=== PATIENT | male | born 1950 ===

== ENCOUNTER 2018-03-02 08:44 | Emergency (ER) | payer OTHER ==
[2018-03-02 08:56] VITALS: RESP 18; TEMP 98.2
[2018-03-02] MEDS ORDERED: Naproxen 550 mg Tab PO STA (09:17)
[2018-03-02] MEDS ORDERED: Naproxen 550 mg Tab PO ONE (09:24)
--- NOTE | 2018-03-02 10:34 | C.PDOC ---
History Of Present Illness 67 year old male presents to the ED for evaluation of right lower back pain and right lower rib pain for 3 days. Patient notes he was heavy lifting. Denies direct trauma, cough, fever, SOB, and any other associated symptoms. Time Seen by Provider: 03/02/18 09:04 Chief Complaint (Nursing): Back Pain History Per: Patient History/Exam Limitations: no limitations Onset/Duration Of Symptoms: Days Current Symptoms Are (Timing): Still Present Past Medical History Reviewed: Historical Data, Nursing Documentation, Vital Signs Vital Signs: Last Vital Signs Temp 98.2 F 03/02/18 08:50 Pulse 67 03/02/18 08:50 Resp 18 03/02/18 08:50 BP 111/68 03/02/18 08:50 Pulse Ox 98 03/02/18 08:50 Family History: States: Unknown Family Hx - Social History Hx Tobacco Use: Yes (light smoker) Hx Alcohol Use: Yes Hx Substance Use: No - Immunization History Hx Tetanus Toxoid Vaccination: No Hx Influenza Vaccination: No Hx Pneumococcal Vaccination: No Review Of Systems Constitutional: Negative for: Fever, Other (direct trauma.) Respiratory: Negative for: Cough, Shortness of Breath Musculoskeletal: Positive for: Back Pain (right lower back pain.), Other (right lower rib pain. ) Physical Exam - Physical Exam Appears: Other (mild pain. ) Skin: Normal Color, Warm, Dry, No Other ((-) abrasions. (-) contusions.) Head: Atraumatic, Normacephalic Cardiovascular: Rhythm Regular, No Murmur Respiratory: Normal Breath Sounds, No Rales, No Rhonchi, No Wheezing Gastrointestinal/Abdominal: Normal Exam, Soft, Other (tenderness to palpation to the right lateral lower ribs. ) Neurological/Psych: Oriented x3, Normal Speech Gait: Steady ED Course And Treatment O2 Sat by Pulse Oximetry: 98 (RA) Pulse Ox Interpretation: Normal - Other Rad X-ray Ribs with Chest X-Ray: Viewed By Me, Read By Radiologist Interpretation: FINDINGS: RIGHT RIBS: There is an acute nondisplaced fracture in the right posterior 9th rib. LUNGS: The lungs are well inflated. There is mild interstitial thickening in the lower lobes. No focal consolidation. PLEURA: No pneumothorax or pleural fluid. CARDIOVASCULAR: Normal sized heart. No pulmonary vascular congestion. OTHER FINDINGS: None. IMPRESSION: Acute nondisplaced fracture in the right posterior 9th rib. No pleural effusion or pneumothorax. X-ray LS X-Ray: Viewed By Me, Read By Radiologist Interpretation: FINDINGS: BONES: There is degenerative grade 1 anterior listhesis of L5 on S1 there is degenerative 9 mm anterior listhesis of L4 on L5. There is 6 mm retrolisthesis of L3 on L4. There is diffuse bone demineralization. There is an age indeterminate mild superior endplate compression deformity in the L2 vertebral body. DISC SPACES: Advanced multilevel degenerative disc disease with anterior osteophytes, reduced disc heights and multilevel facet arthropathy, worse at L4-5 and L5-S1. OTHER FINDINGS: None. IMPRESSION: Age indeterminate mild superior endplate compression deformity in the L2 vertebral body. Advanced multilevel degenerative disc disease worse at L4-5 and L5-S1 with grade 1 anterior listhesis, worse at L5-S1. Progress Note: Patient sent for Ribs with Chest X-ray and LS Spine X-ray. Given Naproxen and Cyclobenzapine. X-ray viewed by me and appeared normal with no fractures. Patient advised to follow up with his PMD within 1 week. Prescribed Naproxen and Cyclobenzaprine. Disposition Counseled Patient/Family Regarding: Studies Performed, Diagnosis, Need For Followup - Disposition Referrals: Montana Small III, MD [Staff Provider] - [facility] [Outside] Disposition: HOME/ ROUTINE Disposition Time: 10:40 Condition: STABLE Additional Instructions: FOLLOW UP WITH YOUR DOCTOR/CLINIC IN 1-2 DAYS, HAVE OUTPATIENT CT SCAN OF YOUR CHEST DONE WITHIN 3 MONTHS USE MEDICATIONS NEEDED FOR PAIN RETURN TO EMERGENCY ROOM IF SYMPTOMS WORSEN BONNY UN SEGUIMIENTO CON MEJIA MDICO / CLNICA EN 1-2 HILL, BONNY ELAINA EXPLORACIN DE MEJIA PECHO EXCEPCIONAL EN UN PESO EN 3 MESES UTILICE MEDICAMENTOS SANTINO SE NECESITE PARA EL DOLOR VUELVA A LA CHAU DE EMERGENCIA SI LOS SNTOMAS SE NOEL PROBLEMAS Prescriptions: Cyclobenzaprine [Flexeril] 10 mg PO BID PRN #15 tab PRN Reason: Muscle Spasm Naproxen 375 mg PO BID PRN #20 tablet PRN Reason: pain Instructions: Low Back Pain (DC) Forms: [employer] (Palestinian) Print Language: URDU - POA Present On Arrival: Falls Or Trauma - Clinical Impression Clinical Impression: Lumbar sprain, Contusion of rib on right side - Scribe Statement The provider has reviewed the documentation as recorded by the Scribe (Gwen Moore) Provider Attestation: All medical record entries made by the Scribe were at my direction and personally dictated by me. I have reviewed the chart and agree that the record accurately reflects my personal performance of the history, physical exam, medical decision making, and the department course for this patient. I have also personally directed, reviewed, and agree with the discharge instructions and disposition.
[2018-03-02 10:56] VITALS: BP 153/90; PULSE 63
[2018-03-02 11:24] VITALS: O2SAT 98
--- NOTE | 2018-03-02 13:39 | RAD ---
Date of service: 03/02/2018 PROCEDURE: Radiographs of the Chest and Right Ribs. HISTORY: RIGHT RIB PAIN COMPARISON: None available. TECHNIQUE: Frontal radiograph of the chest and multiple oblique radiographs of the right ribs were obtained. FINDINGS: RIGHT RIBS: There is an acute nondisplaced fracture in the right posterior 9th rib. LUNGS: The lungs are well inflated. There is mild interstitial thickening in the lower lobes. No focal consolidation. PLEURA: No pneumothorax or pleural fluid. CARDIOVASCULAR: Normal sized heart. No pulmonary vascular congestion. OTHER FINDINGS: None. IMPRESSION: Acute nondisplaced fracture in the right posterior 9th rib. No pleural effusion or pneumothorax.
--- NOTE | 2018-03-02 13:55 | RAD ---
Date of service: 03/02/2018 PROCEDURE: Radiographs of the Lumbar Spine. HISTORY: RIGHT LOW BACK PAIN AFTER FALL COMPARISON: No prior. FINDINGS: BONES: There is degenerative grade 1 anterior listhesis of L5 on S1 there is degenerative 9 mm anterior listhesis of L4 on L5. There is 6 mm retrolisthesis of L3 on L4. There is diffuse bone demineralization. There is an age indeterminate mild superior endplate compression deformity in the L2 vertebral body. DISC SPACES: Advanced multilevel degenerative disc disease with anterior osteophytes, reduced disc heights and multilevel facet arthropathy, worse at L4-5 and L5-S1. OTHER FINDINGS: None. IMPRESSION: Age indeterminate mild superior endplate compression deformity in the L2 vertebral body. Advanced multilevel degenerative disc disease worse at L4-5 and L5-S1 with grade 1 anterior listhesis, worse at L5-S1.
== END 2018-03-02 11:31 | disposition home or self-care (01) ==
LOC: C.ER 08:44
DX: S33.5XXA Sprain of ligaments of lumbar spine, initial encounter (principal); S20.211A Contusion of right front wall of thorax, initial encounter; X50.0XXA Overexertion from strenuous movement or load, initial encounter; F17.210 Nicotine dependence, cigarettes, uncomplicated